=== PATIENT | female | born 1955 | race Hispanic/Latino ===

== ENCOUNTER 2017-09-01 09:37 | Emergency (ER) | payer OTHER ==
[2017-09-01] MEDS ORDERED: Ibuprofen 200 MG TAB ONE (10:07)
[2017-09-01] MEDS ORDERED: Acetaminophen 500 MG TAB ONE (10:07)
--- NOTE | 2017-09-01 10:41 | RAD ---
RIGHT TIBIA AND FIBULA 2 VIEWS: Date: 09/01/17 HISTORY: a pop in calf. Trauma. COMPARISON: None. FINDINGS: No acute fracture or malalignment. Mild posterior edema of the calf. IMPRESSION: Mild posterior soft tissue edema. No acute fracture or malalignment. This could be sequelae of hemat [place] or edema from muscle partial tear or ligamentous injury. POS: [facility]
== END 2017-09-01 10:45 | disposition home or self-care (01) ==
LOC: NAV ERS 09:37
DX: S86.111A Strain of other muscle(s) and tendon(s) of posterior muscle group at lower leg level, right leg, initial encounter (principal); E32.9 Disease of thymus, unspecified; E03.9 Hypothyroidism, unspecified; E78.5 Hyperlipidemia, unspecified; Z79.899 Other long term (current) drug therapy; X50.1XXA Overexertion from prolonged static or awkward postures, initial encounter; Y93.64 Activity, baseball

== ENCOUNTER 2018-08-31 06:57 | Outpatient (CLI) | payer OTHER ==
--- NOTE | 2018-08-31 08:37 | ULT ---
ULTRASOUND ABDOMEN COMPLETE: HISTORY: Abdominal pain. Elevated liver function tests. COMPARISON: Ultrasound 05/22/2014. FINDINGS: Real-time, peña scale, color Doppler, and spectral analysis of the abdomen was performed. Visualized portions of the aorta, IVC, and pancreas are unremarkable. The liver measures 12.3 cm in length. Hepatic echotexture appears normal. Gallbladder is normal. Gallbladder wall thickness is normal. C ommon bile duct is normal. The right kidney measures 8.8 x 4.4 x 4.7 cm without mass, hydronephrosis, or abnormal calcifications . The spleen measures 9.3 cm in length. The left kidney measures 10.1 x 4.9 x 4.2 cm with an interpolar parapelvic 1.4 cm cyst. IMPRESSION: Left renal cyst; otherwise, unremarkable exam. POS: [facility]
== END 2018-08-31 06:58 | disposition home or self-care (01) ==
LOC: NAV ULT 06:57
PROVIDERS: ATTEND Internal Medicine Gastroenterology
DX: R94.5 Abnormal results of liver function studies (principal); N28.1 Cyst of kidney, acquired
CPT/HCPCS: 76700

== ENCOUNTER 2020-10-10 08:21 | Emergency (ER) | payer BC ==
[2020-10-10] MEDS ORDERED: Boostrix 0.5 ML (Tdap) VIAL ONE (08:44)
[2020-10-10] MEDS ORDERED: Lidocaine 1% (PF) 30 ML VIAL ONE (08:45)
[2020-10-10] MEDS ORDERED: Bacitracin 1 PK ONE (09:06)
== END 2020-10-10 09:15 | disposition home or self-care (01) ==
LOC: NAV ERS 08:21
DX: S61.412A Laceration without foreign body of left hand, initial encounter (principal); E03.9 Hypothyroidism, unspecified; E78.5 Hyperlipidemia, unspecified; E78.00 Pure hypercholesterolemia, unspecified; F32.9 Major depressive disorder, single episode, unspecified; Z23 Encounter for immunization; Z79.899 Other long term (current) drug therapy; W26.0XXA Contact with knife, initial encounter
CPT/HCPCS: 12002; 90471; 90715; J2001